=== PATIENT | female | born 1990 ===

== ENCOUNTER 2017-05-20 05:35 | Inpatient (IN) ==
[2017-05-19 14:57] LABS: Basophils # 0.1 10*3/uL (0.0-0.2); Basophils % 0.5 % (0.0-0.8); Eosinophils # 1.1 10*3/uL (0.0-0.87); Eosinophils % 9.6 % (0.00-10.9); Hematocrit 36.3 VOL% (35.7-47.0); Hemoglobin 12.4 GM/DL (12.0-16.0); Immature Granulocytes % 0.3 %; Immature Granulocytes Absolute 0.03 #; Lymphocytes # 3.1 10*3/uL (1.4-4.0); Lymphocytes % 27.4 % (21.3-54.2); Mean Corpuscular HGB Conc 34.2 GM/DL (32-36); Mean Corpuscular Hemoglobin 30 PG (27-34); Mean Corpuscular Volume 86.8 FL (87-102); Mean Platelet Volume 9.4 FL (9.6-12.0); Monocytes # 0.9 10*3/uL (0.11-0.8); Monocytes % 8.3 % (1.7-12.7); Neutrophils % 53.9 % (38.7-73.9); Platelet Count 332 T/CUMM (130-400); Red Blood Count 4.18 MC/CUMM (3.8-5.5); Red Cell Distribution Width 13.7 % (9.3-17.3); White Blood Count 11.2 T/CUMM (4-12)
[2017-05-19 15:30] LABS: Albumin 3.6 G/DL (3.4-5.0); Bilirubin,Total 0.5 MG/DL (0.2-1.0); Calcium 8.3 MG/DL (8.5-10.1); Osmolality,Calculated 276.5 MOS/KG (273-304); Potassium 3.5 MMOL/L (3.5-5.1); Total Protein 7.4 G/DL (6.4-8.3)
[2017-05-19 15:54] LABS: INR 0.9; PT Patient Result 9.8 SECS; Partial Thromboplastin Time 28.9 SECS (0-40)
[2017-05-20] MEDS ORDERED: ceFAZolin 2,000 MG in PREMIX 1 EACH IV ONE (06:00)
[2017-05-20] MEDS ORDERED: LIDOCAINE 2%/EPI 20 ML VIAL ONE (06:25)
[2017-05-20] MEDS ORDERED: BUPIVACAINE 0.25% 50 ML VIAL ONE (06:25)
[2017-05-20] MEDS ORDERED: LACTATED RINGERS 1,000 ML IV SCH (06:30)
[2017-05-20] MEDS ORDERED: ceFAZolin 1,000 MG VIAL ONE ×2 (06:37→07:32)
[2017-05-20] MEDS ORDERED: TISSUE ADHESIVE 1 EACH APPLICATOR TOP ONE (09:24)
[2017-05-20] MEDS ORDERED: KETOROLAC 15 MG/1 ML VIAL IV PRN (09:27)
[2017-05-20] MEDS ORDERED: ACETAMINOPHEN 325 MG TABLET PO PRN (09:27)
[2017-05-20] MEDS ORDERED: HYDROmorphone 2 MG/1 ML VIAL IV PRN (09:27)
[2017-05-20] MEDS ORDERED: PROPOFOL 200 MG/20 ML VIAL IV ONE (09:48)
[2017-05-20] MEDS ORDERED: SEVOFLURANE 1 UNIT/15 MINUTE INH ONE (09:48)
[2017-05-20] MEDS ORDERED: MIDAZOLAM 2 MG/2 ML VIAL ONE (09:48)
[2017-05-20] MEDS ORDERED: GLYCOPYRROLATE 0.4 MG/2 ML VIAL ONE (09:49)
[2017-05-20] MEDS ORDERED: NEOSTIGMINE 10 MG/10 ML VIAL ONE (09:49)
[2017-05-20] MEDS ORDERED: LACTATED RINGERS 1,000 ML IV ONE (09:49)
[2017-05-20] MEDS ORDERED: ACETAMINOPHEN 1,000 MG/100 ML VIAL IV ONE (09:49)
[2017-05-20] MEDS ORDERED: DEXAMETHASONE 10 MG/1 ML VIAL ONE (09:49)
[2017-05-20] MEDS ORDERED: fentaNYL 100 MCG/2 ML VIAL ONE (09:49)
[2017-05-20] MEDS ORDERED: ONDANSETRON 4 MG/2 ML VIAL ONE (09:49)
[2017-05-20] MEDS ORDERED: ROCURONIUM 100 MG/10 ML VIAL IV ONE (09:49)
[2017-05-20] MEDS ORDERED: KETOROLAC 30 MG/1 ML VIAL ONE (09:49)
[2017-05-20] MEDS ORDERED: ONDANSETRON 4 MG/2 ML VIAL IV PRN (10:11)
[2017-05-20] MEDS: HYDROmorphone 2 MG/1 ML VIAL IV PRN ×3 (10:12→10:22)
[2017-05-20 14:32] LABS: Hematocrit 36.1 VOL% (35.7-47.0); Hemoglobin 12.1 GM/DL (12.0-16.0)
[2017-05-20] MEDS: DEXTROSE 5% NACL 0.45% 1,000 ML IV SCH (15:20)
[2017-05-20] MEDS: ceFAZolin 2,000 MG in PREMIX 1 EACH IV SCH (16:38)
[2017-05-21] MEDS: ceFAZolin 2,000 MG in PREMIX 1 EACH IV SCH ×2 (00:22→07:47)
[2017-05-21] MEDS: DEXTROSE 5% NACL 0.45% 1,000 ML IV SCH (00:27)
[2017-05-21 05:59] LABS: Basophils % 0.2 % (0.0-0.8); Hematocrit 32.2 VOL% (35.7-47.0); Hemoglobin 10.6 GM/DL (12.0-16.0); Immature Granulocytes % 0.3 %; Immature Granulocytes Absolute 0.03 #; Lymphocytes # 1.9 10*3/uL (1.4-4.0); Lymphocytes % 18.6 % (21.3-54.2); Mean Corpuscular HGB Conc 32.9 GM/DL (32-36); Mean Corpuscular Hemoglobin 30 PG (27-34); Mean Corpuscular Volume 89.7 FL (87-102); Mean Platelet Volume 9.4 FL (9.6-12.0); Monocytes # 0.8 10*3/uL (0.11-0.8); Neutrophils # 7.6 10*3/uL (1.4-7.4); Neutrophils % 72.9 % (38.7-73.9); Platelet Count 313 T/CUMM (130-400); Red Blood Count 3.59 MC/CUMM (3.8-5.5); Red Cell Distribution Width 13.7 % (9.3-17.3); White Blood Count 10.4 T/CUMM (4-12)
[2017-05-21 06:36] LABS: Calcium 7.6 MG/DL (8.5-10.1); Osmolality,Calculated 281.1 MOS/KG (273-304); Potassium 4.1 MMOL/L (3.5-5.1)
[2017-05-21] MEDS ORDERED: ENOXAPARIN 40 MG/0.4 ML SYRINGE SUBCUT SCH (07:30)
[2017-05-21 08:15] VITALS: BP 98/59
[2017-05-21] MEDS ORDERED: PANTOPRAZOLE 40 MG TABLET PO SCH (09:00)
== END 2017-05-21 12:55 | disposition home or self-care (01) | DRG 355 ==
LOC: N.OR 05:35 → N.SDSINP 06:15 → N.OB 10:40
PROVIDERS: ADMIT Specialist; ATTEND Specialist